=== PATIENT | male | born 1965 | race Caucasian/White ===

== ENCOUNTER 2020-07-28 16:04 | Outpatient (CLI) | payer OTHER, SELFPAY ==
[2020-07-28 18:41] LABS: Basophils Percent Auto 0.3 % (0.2-1.2); Eosinophils Absolute Auto 0.1 K/mm3 (0-0.3); Eosinophils Percent Auto 1.5 % (0-4.4); Hematocrit 42.9 % (42.0-52.0); Hemoglobin 14.5 g/dL (14.0-18.0); Immature Granulocyte Absolute 0.09 K/mm3 (0.00-0.031); Immature Granulocyte Percent A 1.3 % (0-0.5); Lymphocytes Absolute Auto 2.31 K/mm3 (0.9-3.2); Lymphocytes Percent Auto 32.1 % (18.3-44.2); Mean Corpuscular HGB Conc 33.8 g/dl (32-36); Mean Corpuscular Hemoglobin 28.5 pg (26-34); Mean Corpuscular Volume 84.4 fl (80-100); Monocytes Absolute Auto 0.5 K/mm3 (0.1-0.6); Monocytes Percent Auto 7.2 % (2.6-8.5); Neutrophils Absolute Auto 4.2 K/mm3 (1.3-6.7); Neutrophils Percent Auto 57.6 % (45.5-73.1); Platelet Count Result 237 k/mm3 (150-375); Red Blood Count 5.08 M/mm3 (4.6-6.20); White Blood Count 7.2 K/mm3 (4.5-10.0)
[2020-07-28 18:49] LABS: Alanine Aminotransferase 28 U/L (4-50); Albumin Level 4.1 g/dL (3.5-5.1); Alkaline Phosphatase 69 U/L (38-126); Anion Gap 6 mmol/L (8-16); Aspartate Amino Transferase 25 U/L (17-59); Bilirubin,Total 0.8 mg/dL (0.2-1.3); Blood Urea Nitrogen 8 mg/dL (9-20); Calcium 9.3 mg/dL (8.4-10.2); Carbon Dioxide 28 mmol/L (22-30); Chloride 103 mmol/L (98-107); Estimated Glomerular Filt Rate > 60; Glucose 122 mg/dL (75-110); Potassium 3.9 mmol/L (3.4-5.0); Sodium 137 mmol/L (137-145)
[2020-07-28 19:13] LABS: Vitamin D 25 Hydroxy 25.1 ng/mL
[2020-07-28 19:22] LABS: Hemoglobin A1C 7.1 % (<5.7)
[2020-07-28 19:54] LABS: Folic Acid 9.9 ng/mL (2.76->20)
[2020-07-29 09:51] LABS: Add Urine Microscopic? NO; Appearance Urine Clear (Clear); Bilirubin Urine Negative (Negative); Blood Urine Negative (Negative); Color Urine Yellow (Yellow); Glucose Urine UA Negative (Negative); Ketones Urine Negative (Negative); Leukocyte Esterase Ur Negative LEU/UL (Negative); Nitrate Urine Negative (Negative); Protein Urine Negative (Negative); Specific Grav Ur 1.015 (1.001-1.035); Urobilinogen Urine Negative mg/dL (<2.0)
[2020-07-31 11:34] LABS: Testosterone Free 44.7 pg/mL (35.0-155.0); Testosterone Total 319 ng/dL (250-1100)
== END 2020-07-28 16:05 | disposition home or self-care (01) ==
PROVIDERS: PCP Family Medicine; Visit Provider Family Medicine
DX: Z12.5 Encounter for screening for malignant neoplasm of prostate (principal); J45.909 Unspecified asthma, uncomplicated; E11.9 Type 2 diabetes mellitus without complications; I10 Essential (primary) hypertension; Z51.81 Encounter for therapeutic drug level monitoring; Z79.899 Other long term (current) drug therapy; Z82.62 Family history of osteoporosis
CPT/HCPCS: 36415; 80053; 81003; 82306; 82607; 82746; 83002; 83036; 84153; 84402; 84403; 84443; 85025; G0103

== ENCOUNTER 2021-01-07 08:23 | Outpatient (CLI) | payer OTHER, SELFPAY ==
[2021-01-07 18:36] LABS: Hemoglobin A1C 6.8 % (<5.7)
[2021-01-07 18:53] LABS: Cholesterol 134 mg/dL (0-200); HDL Direct 37 mg/dL; Triglycerides 308 mg/dL (<150)
[2021-01-07 19:05] LABS: LDL Cholesterol Direct 69 mg/dL
[2021-01-07 19:12] LABS: Vitamin D 25 Hydroxy 28.2 ng/mL
[2021-01-10 07:42] LABS: C-Peptide 2.54 ng/mL (0.80-3.85)
== END 2021-01-07 08:24 | disposition home or self-care (01) ==
LOC: ANHBWCLAB 08:24
PROVIDERS: Family Medicine; PCP Family Medicine; Visit Provider Family Medicine
DX: E53.8 Deficiency of other specified B group vitamins (principal); R79.89 Other specified abnormal findings of blood chemistry; I10 Essential (primary) hypertension; E11.9 Type 2 diabetes mellitus without complications; Z79.899 Other long term (current) drug therapy; J45.909 Unspecified asthma, uncomplicated; T78.40XA Allergy, unspecified, initial encounter; Z82.62 Family history of osteoporosis
CPT/HCPCS: 36415; 80061; 82306; 82607; 83036; 84681